=== PATIENT | female | born 1990 | race Two or more races ===

== ENCOUNTER → 2023-07-31 | Outpatient (CLI) | payer OTHER ==
--- NOTE | 2023-07-31 17:13 | US ---
EXAMINATION TYPE: US transvaginal DATE OF EXAM: 07/31/2023 COMPARISON: NONE CLINICAL INDICATION: Female, 33 years old with history of N92.0 EXCESSIVE AND FREQUENT MEN; Heavy irr egular periods TECHNIQUE: Transvaginal only per physician order Date of LMP: Unknown EXAM MEASUREMENTS: Uterus: 8.2 x 4.8 x 5.6 cm Endometrial Stripe: 2.7 cm Right Ovary: not seen Left Ovary: 2.3 x 1.6 x 2.6 cm 1. Uterus: anteverted 2. Endometrium: Markedly thickened fundal portion; 0.9 x 1.1 x 2.0cm polyp or other endometrial lesi on seen 3. Right Ovary: not seen due to overlying bowel gas 4. Left Ovary: 1.8 x 1.2 x 1.4cm complex area with peripheral vascularity. Possible hemorrhagic ezequiel us luteum. Follow-up recommended to ensure clearance. 5. Bilateral Adnexa: wnl 6. Posterior cul-de-sac: wnl IMPRESSION: 1. Severely thickened fundal endometrium measuring up to 2.7 cm. There may be an underlying 2.0 cm en dometrial polyp or other endometrial lesion here. Recommend further [facility] evaluation and possible hy sterosonography/hysteroscopy. 2. Lesion in the left ovary, possible 1.8 cm hemorrhagic corpus luteum. Recommend follow-up in 6-8 we eks to ensure involution. 3. Unable to visualize the right ovary.
== END | disposition home or self-care (01) ==
LOC: RADUSWWP 09:43
PROVIDERS: ATTEND Family Medicine
DX: N92.0 Excessive and frequent menstruation with regular cycle (principal); N92.6 Irregular menstruation, unspecified
CPT/HCPCS: 76830